=== PATIENT | male | born 1945 | race Caucasian/White ===

== ENCOUNTER 2018-08-25 11:36 | Outpatient (CLI) | payer MEDICARE, OTHER ==
--- NOTE | 2018-08-25 15:41 | XRAY Report ---
Reason: PAIN IN LEFT KNEE Procedure Date: 08/25/2018 Accession Number: [id number] / [id number] Procedure: XR - Hip w/Pelvis 2-3V LT CPT Code: FULL RESULT: EXAM: LEFT HIP RADIOGRAPHY EXAM DATE: 08/25/2018 12:06 PM. CLINICAL HISTORY: Pain in left knee. COMPARISON: None. TECHNIQUE: 2 views. FINDINGS: Bones: Normal. No fractures or bone lesion. Joints: Moderate narrowing of the left femoroacetabular joint space. No subluxation. Soft Tissues: Normal. No soft tissue swelling. 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 RADIA
--- NOTE | 2018-08-25 15:41 | XRAY Report ---
Reason: PAIN IN LEFT KNEE Procedure Date: 08/25/2018 Accession Number: [id number] / [id number] Procedure: XR - Knee 3 View LT CPT Code: FULL RESULT: EXAM: LEFT KNEE RADIOGRAPHY EXAM DATE: 08/25/2018 12:06 PM. CLINICAL HISTORY: PAIN IN LEFT KNEE. COMPARISON: None. TECHNIQUE: 2 views. FINDINGS: AP and sunrise views of the left knee are obtained. The patient is status post total knee arthroplasty. 2 orthopedic screws are seen in the region of the tibial metadiaphysis. No fracture is identified. No dislocation is seen. IMPRESSION: Status post left knee arthroplasty. RADIA
== END 2018-08-25 11:37 | disposition home or self-care (01) ==
LOC: DI 11:36
PROVIDERS: ATTEND Internal Medicine
DX: M16.12 Unilateral primary osteoarthritis, left hip (principal); Z96.652 Presence of left artificial knee joint

== ENCOUNTER 2019-12-17 12:06 | Outpatient (CLI) | payer MEDICARE, OTHER | END 2019-12-17 12:07 | disposition EMS.NT | LOC: EMS 12:06 | PROVIDERS: ATTEND Surgery | DX: M25.571 Pain in right ankle and joints of right foot (principal); W01.0XXA Fall on same level from slipping, tripping and stumbling without subsequent striking against object, initial encounter ==

== ENCOUNTER 2019-12-17 13:14 | Emergency (ER) | payer MEDICARE, OTHER ==
--- NOTE | 2019-12-17 13:43 | ED Physician Documentation ---
PD HPI LOWER EXT INJURY - Stated complaint Stated Complaint: R ANKLE INJ/SWOLLEN KNEE - Chief complaint Chief Complaint: Ext Problem - History obtained from History obtained from: Patient - History of Present Illness PD HPI LOW EXT INJURY LOCATION: Right, Knee, Foot Type of injury: Fall Where injury occurred: Home Timing - onset: How many days ago (4) Timing - duration: Days (4) Timing - details: Abrupt onset, Still present Improved by: Rest, Ice, Immobilization Worsened by: Moving, Palpating Associated symptoms: Swelling Contributing factors: No: Anticoagulated Similar symptoms before: Diagnosis (joint effusion) Recently seen: Not recently seen - Additional information Additional information: 73-year-old male who 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 He did some limping around and he has begun to develop some swelling in his right knee. He felt yesterday that his symptoms were improving on all fronts and today he is unable to bear weight secondary to pain and swelling in the right knee. He has had something similar to this with an effusion in the knee joint. Review of Systems Constitutional: denies: Fever Respiratory: denies: Dyspnea, Cough GI: denies: Vomiting PD PAST MEDICAL HISTORY - Past Medical History : Benign prostate hypertrophy - Past Surgical History Past Surgical History: Yes Ortho: Knee replacement - Present Medications Home Medications: Ambulatory Orders Medication Instructions Recorded Confirmed Acetaminophen 1,000 mg PO DAILY 12/17/19 12/17/19 Doxycycline Hyclate 100 mg PO DAILY 12/17/19 12/17/19 Finasteride 5 mg PO DAILY 12/17/19 12/17/19 Hydrocodone/Acetaminophen 1 - 2 each PO Q6H PRN #14 tablet 12/17/19 [Hydrocodon-Acetaminophen 5-325] - Allergies Allergies/Adverse Reactions: Allergies Allergy/AdvReac Type Severity Reaction Status Date / Time No Known Drug Allergies Allergy Verified 12/17/19 13:18 - Social History Does the pt smoke?: No Smoking Status: Never smoker Does the pt drink ETOH?: Yes Does the pt have substance abuse?: No - Immunizations Immunizations are current?: No Immunizations: TDAP >10years/unknown PD ED PE NORMAL - Vitals Vital signs reviewed: Yes (hypertensive) - General General: Alert and oriented X 3, No acute distress, Well developed/nourished - HEENT HEENT: Atraumatic, PERRL - Respiratory Respiratory: No respiratory distress - Derm Derm: Normal color, Warm and dry, No rash - Extremities Extremities: Other (The left knee is markedly swollen with a palpable effusion. The knee is tender and has reduced ROM. The ligmaments are stable to testing. to testing and the distal n/v is intact. Examination of the foot shows pain to the distal metatarsals and not to the tarsal metatarsal joint. 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, No motor deficit, No sensory deficit, Normal speech Eye Opening: Spontaneous Motor: Obeys Commands Verbal: Oriented GCS Score: 15 - Psych Psych: Normal mood, Normal affect PD ED PE EXPANDED - Extremities Extremities: Right foot (There is tenderness to the dorsum of the right foot over the metatarsals distal to the MT_) Results - Vitals Vitals: Oxygen O2 Source Room air - Labs Labs: Microbiology 12/17/19 15:40 Body Fluid Culture - Preliminary Other - Unknown Specimen Description Laboratory Tests 12/17/19 12/17/19 12/17/19 15:40 15:40 17:25 WBC 8.1 RBC 3.88 L Hgb 13.0 L Hct 39.4 L MCV 101.5 H MCH 33.5 H MCHC 33.0 RDW 13.1 Plt Count 105 L MPV 10.4 Neut # (Auto) 6.1 Lymph # (Auto) 0.8 L Hutchinson # (Auto) 1.2 H Eos # (Auto) 0.0 Baso # (Auto) 0.0 Absolute Nucleated RBC 0.00 Nucleated RBC % 0.0 ESR Sodium Potassium Chloride Carbon Dioxide Anion Gap BUN Creatinine Estimated GFR (MDRD) Glucose Uric Acid Calcium Total Bilirubin AST ALT Alkaline Phosphatase C-Reactive Protein Total Protein Albumin Globulin Albumin/Globulin Ratio Lipase Fluid Source SYNOVIAL Fluid Color YELLOW Fluid Clarity CLOUDY Fluid WBC 72161 Fluid RBC 4000 Fluid Neutrophils % 96.0 Fluid Lymphocytes % 2.0 Fluid Monocytes % 2.0 Fld Mesothelial Cell % 0 Fluid Crystals NONE SEEN 12/17/19 12/17/19 17:25 17:25 WBC RBC Hgb Hct MCV MCH MCHC RDW Plt Count MPV Neut # (Auto) Lymph # (Auto) Hutchinson # (Auto) Eos # (Auto) Baso # (Auto) Absolute Nucleated RBC Nucleated RBC % ESR 38 H Sodium 131 L Potassium 3.6 Chloride 94 L Carbon Dioxide 24 Anion Gap 13.0 BUN 16 Creatinine 0.7 Estimated GFR (MDRD) 111 Glucose 135 H Uric Acid 6.2 Calcium 8.9 Total Bilirubin 3.5 H AST 42 ALT 39 Alkaline Phosphatase 50 C-Reactive Protein 10.0 H Total Protein 7.6 Albumin 4.1 Globulin 3.5 Albumin/Globulin Ratio 1.2 Lipase 28 Fluid Source Fluid Color Fluid Clarity Fluid WBC Fluid RBC Fluid Neutrophils % Fluid Lymphocytes % Fluid Monocytes % Fld Mesothelial Cell % Fluid Crystals - Rads (name of study) knee Radiology: Prelim report reviewed (Impression: 1. No evidence of acute fracture or dislocation. 2. CPPD arthropathy. 3. Moderate knee joint effusion. 4. non-marginal erosion of distal femur of uncertain significance.), EMP read indepedently, See rad report Foot Radiology: Prelim report reviewed (Impression: Questionable subtle nondisplaced fractures of the base of the proximal phalanges of the second through fourth toes. If definitive diagnosis is required, foot CT may be helpful.), EMP read indepedently, See rad report Procedures - Arthrocentesis Joint: Knee Preparation: Consent obtained (verbally), Sterile prep and drape Anesthesia: Lidocaine 1% Fluid: Sent for cell count, Cloudy, Sent for culture, Fluid obtained - cc (95), Sent for gram stain Aftercare: Dressing applied, No complications, Other (instilled kenelog 40mg), Patient tolerated well PD MEDICAL DECISION MAKING - ED course Complexity details: reviewed old records, reviewed results, re-evaluated patient, considered differential, d/w patient, d/w family ED course: Previously well 73-year-old male had a fall 4 days ago injuring his right foot and he has been able to walk on this over the last 3 days with a cane yesterday he did not seem to need the cane even. Later in the evening he began to have some pain in his knee and at 4:30 in the morning, sharp severe pain awoke him from sleep. He is not able to bear any weight on this knee now and this knee is markedly swollen. He has not had a fever. He has had some swelling in his left knee similar to this previously and has had that drained previously. The patient does have a history of arthritis.Today we were able to drain 95 cc of cloudy yellow fluid from the right knee. Synovial fluid analysis shows over 60,000 white cells in the fluid with a negative Gram stain and no crystals. Dr. Navarro is consulted and the case recommends checking the white blood cell count ESR and CRP as well as uric acid. He recommends conservative treatment if these are unremarkable. At shift change care is turned over to Dr. Knowles with these studies pending. The patient has improvement in his pain and a walker is provided. His foot is tender distal to the MT-T joint and I do not suspect fracture. Departure - Departure Disposition: 01 Home, Self Care Clinical Impression: Contusion of right foot, initial encounter, Effusion of knee joint right Condition: Stable Instructions: ED Effusion Knee Follow-Up: William Bloom MD [Primary Care Provider] - Within 3 Days Esther Wiggins MD [Physician No Access] - Within 3 Days Prescriptions: Hydrocodone/Acetaminophen [Hydrocodon-Acetaminophen 5-325] 1 - 2 each PO Q6H PRN #14 tablet PRN Reason: pain Comments: Return if you worsen. Follow up with your doctor and or orthopedist within 3 days for recheck Discharge Date/Time: 12/17/19 18:43
--- NOTE | 2019-12-17 14:34 | XRAY Report ---
PROCEDURE: Knee 3 View RT INDICATIONS: TRAUMA TECHNIQUE: 4 views of the right knee(s) were acquired. COMPARISON: None. FINDINGS: Bones: No fractures or dislocations. No suspicious bony lesions. There is chondrocalcinosis, and th ere are small tricompartment osteophytes. Findings are consistent with CPPD arthropathy. There is a n onmarginal erosion involving the lateral condyle of the distal femur, of uncertain significance. Soft tissues: Moderate joint effusion. No suspicious soft tissue calcifications. IMPRESSION: 1. No evidence acute fracture or dislocation. 2. CPPD arthropathy. 3. Moderate knee joint effusion 4. Nonmarginal erosion of distal femur of uncertain significance. Reviewed by: Naresh Fairchild MD on 12/17/2019 1:32 PM [facility] Approved by: Naresh Fairchild MD on 12/17/2019 1:32 PM KOR[facility] Station ID: [id number]
--- NOTE | 2019-12-17 14:56 | XRAY Report ---
PROCEDURE: Foot 3 View RT INDICATIONS: trauma TECHNIQUE: 3 views of the foot were acquired. COMPARISON: None FINDINGS: Bones: No fractures or dislocations. No suspicious bony lesions. Severe degenerative arthritis at the first tarsometatarsal joint. Degenerative arthritis involving the first MTP and IP joints. Questi on subtle nondisplaced fractures of the base of the proximal phalanges of the second through fourth t oes Soft tissues: No tibiotalar joint effusion. Achilles tendon appears normal. IMPRESSION: Question subtle nondisplaced fractures of the base of the proximal phalanges of the second through fo urth toes. Comment: If definitive diagnosis is required, foot CT may be helpful. Above discussed with ED PHYSICIAN at the time of dictation. Reviewed by: Naresh Fairchild MD on 12/17/2019 1:55 PM K[facility] Approved by: Naresh Fairchild MD on 12/17/2019 1:55 PM [facility] Station ID: [id number]
[2019-12-17] MEDS ORDERED: BUFFERED LIDOCAINE 10 ML SYRINGE SUBQ STA (15:00)
[2019-12-17] MEDS ORDERED: TRIAMCINOLONE 40 MG/ML VIAL IM STA (15:13)
[2019-12-17 16:53] LABS: BF CLARITY CLOUDY; BF COLOR YELLOW; BF SOURCE SYNOVIAL; CC,BF RBC 4000 /mm^3
[2019-12-17 17:14] LABS: MESOTHELIAL %, BF 0 %
[2019-12-17 17:48] LABS: BASOPHILS % (AUTO) 0.2 %; LYMPHOCYTES # (AUTO) 0.8 10^3/uL (1.5-3.5); LYMPHOCYTES % (AUTO) 10.1 %; MEAN CORPUSCULAR HEMOGLOBIN 33.5 pg (27.0-31.0); MEAN CORPUSCULAR VOLUME 101.5 fL (80.0-94.0); MEAN PLATELET VOLUME 10.4 fL (7.4-11.4); MONOCYTES # (AUTO) 1.2 10^3/uL (0.0-1.0); MONOCYTES % (AUTO) 14.4 %; NEUTROPHILS # (AUTO) 6.1 10^3/uL (1.5-6.6); NEUTROPHILS % (AUTO) 74.9 %; PLT - PLATELET COUNT 105 10^3/uL (130-450); RED BLOOD COUNT 3.88 10^6/uL (4.70-6.10); RED CELL DISTRIBUTION WIDTH 13.1 % (12.0-15.0); WHITE BLOOD COUNT 8.1 x10^3/uL (4.8-10.8)
[2019-12-17 18:09] LABS: ALBUMIN 4.1 g/dL (3.2-5.5); ALBUMIN/GLOBULIN RATIO 1.2 (1.0-2.2); BILIRUBIN,TOTAL 3.5 mg/dL (0.2-1.0); CALCIUM 8.9 mg/dL (8.5-10.3); CREATININE 0.7 mg/dL (0.6-1.2); TOTAL PROTEIN 7.6 g/dL (6.7-8.2); URIC ACID 6.2 mg/dL (2.6-7.2)
--- NOTE | 2019-12-17 18:22 | ED Physician Documentation ---
ED Addendum - Addendum Addendum: 12/17/19 18:21 I reviewed the lab results with Dr. Navarro, orthopedics on-call who recommends follow-up with the patient's primary doctor or his orthopedist within 3 days. Likely inflammatory changes.
[2019-12-17] MEDS ORDERED: HYDROcod/ACETAM 5/325 MG TABLET PO STA (18:33)
[2019-12-17 18:46] VITALS: BP 110/54
== END 2019-12-17 18:43 | disposition home or self-care (01) ==
LOC: ED 13:14
DX: M25.461 Effusion, right knee (principal); M11.861 Other specified crystal arthropathies, right knee; S90.31XA Contusion of right foot, initial encounter; X50.1XXA Overexertion from prolonged static or awkward postures, initial encounter; W19.XXXA Unspecified fall, initial encounter; Y92.009 Unspecified place in unspecified non-institutional (private) residence as the place of occurrence of the external cause
CPT/HCPCS: 20610; 36415; 73562; 73630; 80053; 83690; 84550; 85025; 85651; 86140; 87070; 87205; 89051; 89060; 99284; A9270

== ENCOUNTER 2020-01-04 13:02 | Outpatient (CLI) | payer MEDICARE, OTHER ==
--- NOTE | 2020-01-04 16:52 | XRAY Report ---
PROCEDURE: Hand 2 View RT INDICATIONS: PAIN IN RT FINGERS TECHNIQUE: 3 views of the hand(s) acquired. COMPARISON: None FINDINGS: Bones: No fractures or dislocations. No suspicious bony lesions. Scattered IP degenerative changes are present. Areas of periarticular osteophyte and subchondral lucencies are present. First CMC dege nerative narrowing is present. Soft tissues: No suspicious soft tissue calcifications. IMPRESSION: Degenerative changes suggestive osteoarthritis. Reviewed by: Farzaneh Marshall MD on 01/04/2020 4:51 PM PDT Approved by: Farzaneh Marshall MD on 01/04/2020 4:51 PM PDT Station ID: [id number]
== END 2020-01-04 13:03 | disposition home or self-care (01) ==
LOC: DI 13:02
PROVIDERS: ATTEND Internal Medicine
DX: M79.644 Pain in right finger(s) (principal)

== ENCOUNTER 2020-08-09 10:46 | Outpatient (CLI) | payer MEDICARE, OTHER | END 2020-08-09 10:47 | disposition short-term general hospital (02) | LOC: EMS 10:46 | DX: R06.09 Other forms of dyspnea (principal) | CPT/HCPCS: A0425; A0429 ==

== ENCOUNTER 2023-06-01 08:00 | Outpatient (CLI) | payer MEDICARE, OTHER ==
--- NOTE | 2023-06-01 13:59 | XRAY Report ---
PROCEDURE: Chest 2 View X-Ray INDICATIONS: ACUTE COUGH TECHNIQUE: 2 views of the chest were acquired. COMPARISON: Chest x-ray 07/05/2015 FINDINGS: Surgical changes and devices: None. Lungs and pleura: No pleural effusions or pneumothorax. Lungs are clear. Elevation of the left he midiaphragm with prominent gastric bubble is incidentally noted. Mediastinum: Mediastinal contours appear normal. Heart size is normal. Bones and chest wall: No suspicious bony lesions. Overlying soft tissues appear unremarkable. IMPRESSION: No acute cardiopulmonary process. Reviewed by: Farzaneh Marshall MD on 06/01/2023 1:57 PM [facility] Approved by: Farzaneh Marshall MD on 06/01/2023 1:57 PM [facility] Station ID: [id number]
== END 2023-06-01 23:59 | disposition home or self-care (01) ==
LOC: DI.S 08:00
PROVIDERS: ATTEND Registered Nurse
DX: U07.1 COVID-19 (principal); R05.1 Acute cough

== ENCOUNTER 2023-06-11 12:12 | Outpatient (CLI) | payer MEDICARE, OTHER ==
[2023-06-11 13:15] LABS: CREATININE 0.7 mg/dL (0.6-1.3)
[2023-06-11] MEDS ORDERED: iohexoL-300 100 ML VIAL IVP ONE (14:31)
--- NOTE | 2023-06-11 15:46 | CT Report ---
PROCEDURE: CHEST W INDICATIONS: ABN CHEST RAD, COUGH CONTRAST: omni 300 100ml TECHNIQUE: After the administration of intravenous contrast, 1 mm axial images were acquired from the pulmonary apices through the posterior costophrenic angles. Axial 5 mm soft tissue kernel reconstructions were performed as well as 8 mm axial MIP and coronal and sagittal 5 mm reformations. For radiation dose reduction, the following was used: automated exposure control, adjustment of mA and/or kV according to patient size. COMPARISON: None. FINDINGS: Image quality: Diagnostic. Lungs and pleura: Left basilar atelectasis. No pleural effusions. No pneumothorax. Pulmonary nodules as follows: 4 mm right lower lobe nodule (4/166, MIP image 84) 2 mm left upper lobe nodule (4/102, MIP image 52) Mediastinum: Heart size is normal. No pericardial effusion. No large vessel abnormality. No mediastin al adenopathy by size criteria. Dense coronary artery calcifications versus stents. Chest wall and lower neck: Thyroid is unremarkable. No axillary or supraclavicular adenopathy by size . Bones: No acute or suspicious osseous abnormality. Upper Abdomen: Unremarkable. IMPRESSION: Left hemidiaphragm with associated left basilar atelectasis. Scattered sub-6 mm solid pulmonary nodules. If patient is high risk for lung malignancy, recommend fo llow-up CT in 12 months to demonstrate stability. Reviewed by: Snow Ortega MD on 06/11/2023 3:44 PM PST Approved by: Snow Ortega MD on 06/11/2023 3:44 PM PST Station ID: [id number]
== END 2023-06-11 12:13 | disposition home or self-care (01) ==
LOC: LAB 12:12
PROVIDERS: ATTEND Registered Nurse
DX: R91.8 Other nonspecific abnormal finding of lung field (principal); J98.11 Atelectasis
CPT/HCPCS: 36415; 71260; 82565; Q9967

== ENCOUNTER 2023-07-27 13:07 | Outpatient (CLI) | payer MEDICARE, OTHER ==
[2023-07-27 20:00] LABS: BASOPHILS % (AUTO) 0.5 %; EOSINOPHILS # (AUTO) 0.2 10^3/uL (0.0-0.7); EOSINOPHILS % (AUTO) 3.8 %; HCT - HEMATOCRIT 40.7 % (42.0-52.0); HGB - HEMOGLOBIN 13.5 g/dL (14.0-18.0); LYMPHOCYTES # (AUTO) 1.8 10^3/uL (1.5-3.5); LYMPHOCYTES % (AUTO) 31.7 %; MEAN CORPUSCULAR HEMOGLOBIN 34.4 pg (27.0-31.0); MEAN CORPUSCULAR HGB CONC 33.2 g/dL (32.0-36.0); MEAN CORPUSCULAR VOLUME 103.8 fL (80.0-94.0); MEAN PLATELET VOLUME 9.9 fL (7.4-11.4); MONOCYTES # (AUTO) 0.6 10^3/uL (0.0-1.0); NEUTROPHILS # (AUTO) 2.9 10^3/uL (1.5-6.6); NEUTROPHILS % (AUTO) 52.6 %; PLT - PLATELET COUNT 204 10^3/uL (130-450); RED BLOOD COUNT 3.92 10^6/uL (4.70-6.10); RED CELL DISTRIBUTION WIDTH 13.1 % (12.0-15.0); WHITE BLOOD COUNT 5.6 x10^3/uL (4.8-10.8)
[2023-07-27 20:09] LABS: ALBUMIN 4.3 g/dL (3.2-5.5); ALBUMIN/GLOBULIN RATIO 1.5 (1.0-2.2); ALKALINE PHOSPHATASE 46 IU/L (42-121); ALT ALANINE AMINOTRANSFERASE 43 IU/L (10-60); AST ASPARTATE AMINOTRANSFERASE 68 IU/L (10-42); BILIRUBIN,TOTAL 1.4 mg/dL (0.2-1.0); BUN - BLOOD UREA NITROGEN 10 mg/dL (6-20); CALCIUM 9.3 mg/dL (8.5-10.3); CARBON DIOXIDE - CO2 28 mmol/L (21-32); CHLORIDE 101 mmol/L (101-111); CHOL/HDL RATIO 2.8 (<5.0); CHOLESTEROL 168 mg/dL; CREATININE 0.7 mg/dL (0.6-1.3); GFR - MDRD 109 (>89); GLUCOSE 91 mg/dL (74-104); HDL CHOLESTEROL 61 mg/dL; LDL CHOLESTEROL,CALCULATED 72 mg/dL; LDL/HDL RATIO 1.2 (<3.6); POTASSIUM 4.1 mmol/L (3.5-4.5); SODIUM 137 mmol/L (135-145); TOTAL PROTEIN 7.1 g/dL (6.4-8.9); TRIGLYCERIDES 174 mg/dL (48-352); VLDL CHOLESTEROL 35 mg/dL
[2023-07-28 09:04] LABS: THYROID STIMULATING HORMONE 2.81 uIU/mL (0.34-5.60)
== END 2023-07-27 13:08 | disposition home or self-care (01) ==
LOC: LAB.S 13:07
PROVIDERS: ATTEND Physician Assistant Medical
DX: Z13.9 Encounter for screening, unspecified (principal); Z90.79 Acquired absence of other genital organ(s); R06.09 Other forms of dyspnea
CPT/HCPCS: 36415; 80053; 80061; 83721; 84153; 84443; 85025; 86850; 86900; 86901